=== PATIENT | male | born 2000 | race Caucasian/White ===

== ENCOUNTER 2021-02-10 00:04 | Emergency (ER) | payer OTHER ==
[~2021-02-10] VITALS: Ht 182.9 cm; Wt 75.0 kg
[2021-02-10] MEDS ORDERED: CETRAXAL0.2% IO (03:51)
[2021-02-10 06:01] VITALS: BP 127/79; PULSE 60; TEMP 98.4
== END 2021-02-10 06:04 | disposition home or self-care (01) ==
LOC: COL.ER 00:04
DX: H10.9 Unspecified conjunctivitis (principal)